=== PATIENT | female | born 1965 | race Asian ===

== ENCOUNTER 2022-01-10 09:28 | Outpatient (CLI) | payer BC | END 2022-01-10 09:29 | disposition home or self-care (01) | LOC: CSHULT 09:28 | PROVIDERS: ATTEND Internal Medicine | DX: R10.32 Left lower quadrant pain (principal) | CPT/HCPCS: 76700 ==

== ENCOUNTER 2022-01-21 12:24 | Outpatient (CLI) | payer BC | END 2022-01-21 12:25 | disposition home or self-care (01) | LOC: CSHULT 12:24 | PROVIDERS: ATTEND Internal Medicine | DX: R10.32 Left lower quadrant pain (principal) | CPT/HCPCS: 76856; 76857 ==